=== PATIENT | male | born 1950 | race Caucasian/White ===

== ENCOUNTER 2019-07-31 16:19 | Inpatient (IN) | payer OTHER, MEDICARE ==
[~2019-07-31] VITALS: Ht 177.8 cm; Wt 118.5 kg
--- NOTE | 2019-07-31 16:50 | NUR ---
THIS IS A 69 YO M W/ C/O SOB/COUGH X3 WEEKS HX OF PE'S IN NOVEMBER 2018. LUNG SOUNDS CLEAR THROUGHOUT. VS STABLE. NADN. PRODUCTIVE COUGH NOTED. PT CONVERSING IN FULL SENTENCES W/O DIFFICULTY. PT IS RESTING ON Wingu W/ CALL LIGHT IN REACH.
--- NOTE | 2019-07-31 16:59 | NUR ---
PIV STARTED, LABS DRAWN.
[2019-07-31] MEDS ORDERED: SODIUM CHLORIDE FLUSH 10ML SYR IVF ONE (17:00)
[2019-07-31 17:09] LABS: BASOPHILS # (AUTO) 0.03 x10^3/uL (0-0.1); BASOPHILS % (AUTO) 1 % (0-1); EOSINOPHILS # (AUTO) 0.35 x10^3/uL (0-0.4); EOSINOPHILS % (AUTO) 6 % (1-7); LYMPHOCYTES # (AUTO) 1.42 x10^3/uL (1-3.4); LYMPHOCYTES % (AUTO) 23 % (22-44); MD NO; MEAN CORPUSCULAR HEMOGLOBIN 30.9 pg (27.5-34.5); MEAN CORPUSCULAR HGB CONC 33.4 g/dL (33.2-36.2); MEAN CORPUSCULAR VOLUME 92.4 fL (81-97); MEAN PLATELET VOLUME 8.7 fL (7.4-10.4); MONOCYTES # (AUTO) 0.77 x10^3/uL (0.2-0.8); MONOCYTES % (AUTO) 13 % (2-9); NEUTROPHILS # (AUTO) 3.54 x10^3/uL (1.8-6.8); NEUTROPHILS % (AUTO) 58 % (42-75); PLATELET COUNT 243 x10^3/uL (130-400); RED BLOOD COUNT 4.92 x10^6/uL (4.38-5.82); RED CELL DISTRIBUTION WIDTH 14.5 % (9.4-14.8)
--- NOTE | 2019-07-31 17:16 | NUR ---
Codi ulloa in [facility] - 07/31/19 at 1717 by ADRIANNE TELEPHONE CALL TO SW. MEIER LEFT BY
[2019-07-31 17:17] LABS: ALANINE AMINOTRANSFERASE 30 U/L (12-78); ALBUMIN 3.8 g/dL (3.4-5.0); ANION GAP 6 mmol/L (5-15); CALCIUM 8.8 mg/dL (8.5-10.1); CHLORIDE 109 mmol/L (98-107)
[2019-07-31 17:22] LABS: ALKALINE PHOSPHATASE 87 U/L (45-117); BILIRUBIN,TOTAL 0.6 mg/dL (0.2-1.0); CREATININE 1.14 mg/dL (0.7-1.3); INTERNATIONAL NORMALIZED RATIO 0.94 (0.93-1.1); TOTAL PROTEIN 7.7 g/dL (6.4-8.2); TROPONIN I < 0.015 ng/mL (0.000-0.045)
--- NOTE | 2019-07-31 17:31 | NUR ---
PT TO CT VIA [facility].
[2019-07-31] MEDS ORDERED: OMNIPAQUE 350 MG/ML, 100ML BOTTLE ONE (17:43)
[2019-07-31] MEDS ORDERED: DIPHENHYDRAMINE 50 MG/ML, 1ML ONE (17:43)
--- NOTE | 2019-07-31 17:46 | NUR ---
PT GIVEN IV BENADRYL FOR RASH ON BILAT ARMS AFTER CTA.
[2019-07-31] MEDS ORDERED: ASPIRIN 325 MG TABLET PO ONE (17:49)
--- NOTE | 2019-07-31 17:55 | NUR ---
GAVE VERBAL ORDER FOR 324 ASPIRIN. WILL CHANGE IN EMAR.
--- NOTE | 2019-07-31 17:55 | NUR ---
PT MEDICATED W/ 324 MG ASPIRIN.
[2019-07-31] MEDS ORDERED: ASPIRIN 81 MG TABLET CHEW ONE ×2 (17:59→18:01)
[2019-07-31] MEDS ORDERED: DIPHENHYDRAMINE 50 MG/ML, 1ML IVPush ONE (18:00)
--- NOTE | 2019-07-31 18:19 | NUR ---
REPORT GIVEN TO FRANCOISE CRAFT. STATES FLOOR WILL CALL BACK WHEN ROOM IS CLEAN.
--- NOTE | 2019-07-31 18:50 | NUR ---
Report from Doris CRAFT.
[2019-07-31] MEDS ORDERED: BISACODYL 10 MG SUPP PR PRN (19:00)
[2019-07-31] MEDS ORDERED: hydrALAzine 20 MG/ML, 1ML IVPush PRN (19:00)
[2019-07-31] MEDS ORDERED: morphine SULFATE 10 MG/ML, 1ML IVPush PRN (19:00)
[2019-07-31] MEDS ORDERED: ONDANSETRON ODT 4 MG PO PRN (19:00)
[2019-07-31] MEDS ORDERED: POLYETHYLENE GLYCOL 17 GM PACKET PO PRN (19:00)
[2019-07-31] MEDS ORDERED: ACETAMINOPHEN 325 MG TABLET PO PRN (19:00)
--- NOTE | 2019-07-31 19:20 | NUR ---
talked to moon on tele floor, stated room is being cleaned at this time and he will call back as soon as room is ready
--- NOTE | 2019-07-31 19:42 | NUR ---
PT RESTING CALMLY, UPDATED ON POC, DENIES NEEDS AT THSI TIME, AWAITING ROOM TO BE CLEANED FOR ADMIT
[2019-07-31 20:01] VITALS: BP 161/109
[2019-07-31] MEDS: SODIUM CHLORIDE FLUSH 10ML SYR IVF SCH (20:27)
[2019-07-31] MEDS: HEPARIN 5,000 UNITS/ML, 1ML SQ SCH (20:27)
[2019-07-31 23:31] LABS: TROPONIN I < 0.015 ng/mL (0.000-0.045)
[2019-08-01] VITALS (7 sets, daily range): BP systolic 134–160; BP diastolic 86–104
[2019-08-01 04:55] LABS: BASOPHILS # (AUTO) 0.07 x10^3/uL (0-0.1); BASOPHILS % (AUTO) 1 % (0-1); EOSINOPHILS # (AUTO) 0.38 x10^3/uL (0-0.4); EOSINOPHILS % (AUTO) 7 % (1-7); LYMPHOCYTES % (AUTO) 20 % (22-44); MD NO; MEAN CORPUSCULAR HEMOGLOBIN 31.1 pg (27.5-34.5); MEAN CORPUSCULAR HGB CONC 32.8 g/dL (33.2-36.2); MEAN CORPUSCULAR VOLUME 94.8 fL (81-97); MEAN PLATELET VOLUME 8.2 fL (7.4-10.4); MONOCYTES # (AUTO) 0.72 x10^3/uL (0.2-0.8); MONOCYTES % (AUTO) 12 % (2-9); NEUTROPHILS # (AUTO) 3.57 x10^3/uL (1.8-6.8); NEUTROPHILS % (AUTO) 60 % (42-75); PLATELET COUNT 215 x10^3/uL (130-400); RED BLOOD COUNT 4.46 x10^6/uL (4.38-5.82); RED CELL DISTRIBUTION WIDTH 14.5 % (9.4-14.8)
[2019-08-01 05:11] LABS: ANION GAP 4 mmol/L (5-15); CALCIUM 8.6 mg/dL (8.5-10.1); CHLORIDE 108 mmol/L (98-107); CHOLESTEROL, TOTAL 186 mg/dL (140-239); CREATININE 1.15 mg/dL (0.7-1.3)
[2019-08-01 05:15] LABS: CHOL/HDL RATIO 6.6; HDL CHOL % 15 % (26-37); HDL CHOLESTEROL (DIRECT) 28 mg/dL (40-60); LDL CHOLESTEROL,CALCULATED 113 mg/dL (54-169); TRIGLYCERIDES 226 mg/dL (50-200); TROPONIN I < 0.015 ng/mL (0.000-0.045); VLDL CHOLESTEROL 45 mg/dL (0-25)
[2019-08-01] MEDS: HEPARIN 5,000 UNITS/ML, 1ML SQ SCH ×3 (05:39→20:03)
[2019-08-01] MEDS: ASPIRIN 81 MG TABLET EC PO SCH (05:39)
[2019-08-01] MEDS: SODIUM CHLORIDE FLUSH 10ML SYR IVF SCH ×2 (09:54→20:03)
[2019-08-01] MEDS: CHLORTHALIDONE 25 MG TABLET PO SCH (09:54)
[2019-08-01] MEDS: SENNA/DOCUSATE TABLET PO SCH (09:54)
[2019-08-01] MEDS: NITROGLYCERIN 0.4 MG BOTTLE (25 TABS) SL PRN ×2 (10:14→10:22)
[2019-08-01] MEDS ORDERED: ISOSORBIDE MONONITRATE ER 30 MG TABLET PO SCH (12:30)
[2019-08-01] MEDS ORDERED: LISINOPRIL 10 MG TABLET PO SCH (12:30)
[2019-08-01] MEDS: ISOSORBIDE MONONITRATE ER 30 MG TABLET PO SCH (13:20)
[2019-08-01] MEDS ORDERED: LATA2.5D3 EACHEYE (13:36)
[2019-08-01] MEDS ORDERED: LEVO50TA5 PO (13:36)
[2019-08-01] MEDS ORDERED: TRIA1KT.2 TP (13:36)
[2019-08-01] MEDS ORDERED: TAMS-11 PO (13:36)
[2019-08-01] MEDS ORDERED: AMLO10TA8 PO (13:36)
[2019-08-01] MEDS ORDERED: CROM13SP5 INH (13:36)
[2019-08-01] MEDS ORDERED: LISI-170 PO (13:36)
[2019-08-01] MEDS ORDERED: LORA-247 PO (13:36)
[2019-08-01 15:14] LABS: AMPHETAMINE SCREEN, URINE Negative (Negative); BARBITURATE SCREEN, URINE Negative (Negative); BENZODIAZEPINE SCREEN, URINE Negative (Negative); CANNABINOID SCREEN, URINE Negative (Negative); COCAINE SCREEN, URINE Negative (Negative); METHADONE SCREEN, URINE Negative (Negative); OPIATE SCREEN, URINE Negative (Negative)
[2019-08-01] MEDS ORDERED: ISOS30TA8 PO (16:54)
[2019-08-01] MEDS: SODIUM CHLORIDE NASAL SPRAY 45ML BOTTLE NAS PRN (17:29)
[2019-08-02 00:48] VITALS: BP 174/106
[2019-08-02] MEDS: SODIUM CHLORIDE NASAL SPRAY 45ML BOTTLE NAS PRN (02:41)
[2019-08-02] MEDS: HEPARIN 5,000 UNITS/ML, 1ML SQ SCH (06:04)
[2019-08-02] MEDS: ASPIRIN 81 MG TABLET EC PO SCH (06:04)
[2019-08-02] MEDS ORDERED: LISINOPRIL 10 MG TABLET PO SCH (07:30)
[2019-08-02 07:33] VITALS: BP 149/97
[2019-08-02] MEDS: SENNA/DOCUSATE TABLET PO SCH (08:50)
[2019-08-02] MEDS: CHLORTHALIDONE 25 MG TABLET PO SCH (08:51)
[2019-08-02] MEDS: ISOSORBIDE MONONITRATE ER 30 MG TABLET PO SCH (08:53)
[2019-08-02] MEDS: SODIUM CHLORIDE FLUSH 10ML SYR IVF SCH (08:55)
[2019-08-02] MEDS ORDERED: GUAIFENESIN 100 MG/5 ML, 5ML UDC PO PRN (09:00)
[2019-08-02] MEDS ORDERED: ASPI-515 PO (11:35)
[2019-08-02 11:47] VITALS: BP 91/61
== END 2019-08-02 13:34 | disposition home or self-care (01) | DRG 303 ==
LOC: ED 18:02 → EDIP 18:37 → 5SO 19:56
PROVIDERS: ADMIT Family Medicine; ATTEND Internal Medicine
DX: I25.110 Atherosclerotic heart disease of native coronary artery with unstable angina pectoris (principal); Z68.37 Body mass index [BMI] 37.0-37.9, adult; E78.1 Pure hyperglyceridemia; I10 Essential (primary) hypertension; I16.0 Hypertensive urgency; J06.9 Acute upper respiratory infection, unspecified; E88.81 Metabolic syndrome and other insulin resistance; E66.8 Other obesity; J45.909 Unspecified asthma, uncomplicated; Z79.01 Long term (current) use of anticoagulants; Z80.3 Family history of malignant neoplasm of breast; Z86.711 Personal history of pulmonary embolism; Z87.891 Personal history of nicotine dependence; Z88.8 Allergy status to other drugs, medicaments and biological substances; Z91.013 Allergy to seafood
CPT/HCPCS: 36415; 96374; 99285; C8929; 71275; 80048; 80053; 80061; 80307; 83880; 84484; 85025; 85610; 85730; 93005; G0378; J1644; Q0162; Q9957; Q9967; J0360; J1200